=== PATIENT | female | born 1975 | race Two or more races ===

== ENCOUNTER 2019-08-06 12:53 | Emergency (ER) | payer OTHER ==
[~2019-08-06] VITALS: Ht 172.7 cm; Wt 68.0 kg
[~2019-08-06 12:53] MED LIST: ALBUTEROL SULF8.5 GM INH; AZITHROMYCIN250 MG PO; BACTRIM DOUBLE S1 E1 ORAL; FERROUS SULFAT325 MG ORAL; FOLIC ACID1 MG ORAL; KEFLEX500 MG ORAL; MULTIVITAMINS1 EAC2 ORAL; NKM; THIAMINE HCL100 MG ORAL
--- NOTE | 2019-08-06 13:25 | NUR ---
ED Nurse Note: Pt ambulated to ED d/t fever and productive cough since 07/25/19. Per report pt traveled to [place] jul 07- via [place]. Pt is AOx4. Afebrile on triage. Placed on trauma room.
[2019-08-06 13:27] VITALS: BP 141/77
--- NOTE | 2019-08-06 13:45 | NUR ---
ED Nurse Note: Report received from DANIS Gonsalves. pt is in bed resting. no acute distress present.
--- NOTE | 2019-08-06 13:52 | NUR ---
ED Nurse Note: flu swab sent to lab
--- NOTE | 2019-08-06 14:56 | Diagnostic Imaging Report ---
Indication: Cough Technique: One view of the chest Comparison: 09/09/2014 Findings: There are some atelectasis at the right lung base. Lungs and pleural spaces are otherwise clear. The heart size is normal. Impression: Right basilar atelectasis. No acute process otherwise
--- NOTE | 2019-08-06 15:02 | Emergency Room Report ---
History of Present Illness General Chief Complaint: Upper Respiratory Illness Source: Patient Present Illness HPI 43-year-old female with no symptom past medical history other than smoking history status post bleeding times several years here complaining of 2 weeks of continuous cough and shortness of breath after coming back from [place]. Patient reports that on July 02 she went to [place], came back and was asymptomatic. Then on June she started with cough and congestion and low -grade fever however cough and congestion has not yet subsided. Patient also has her mom who went to [place] with her and presents to have similar symptoms. Patient's mom is not here today. Patient denies any chest pain, headache and dizziness. Patient denies coming contact with anyone who has traveled to countries of [place]. Is afebrile and vital signs are within normal limits. [facility] was contacted after patient was placed in isolation with negative pressure, and proper scanning and mask was used for examination of patient. After speaking to Brandy at [facility] it was determined that since patient has normal chest x -ray, as well as negative flu swab, patient can be discharged to go home with treatment for symptoms and self quarantine for 14 days. Patient denies . COVID-19 risk:Travel to [facility]: Yes Has patient experienced ruiz: No Allergies: Coded Allergies: No Known Allergies (Unverified , 05/21/12) Patient History Past Medical History: see triage record Past Surgical History: none Pertinent Family History: none Social History: Reports: smoking - hx of tobacco smoke, Now: No Immunizations: UTD Reviewed Nursing Documentation: PMH: Agreed; PSxH: Agreed Nursing Documentation-PM Past Medical History: No Stated History Hx Cardiac Problems: No Hx Cancer: No Hx Gastrointestinal Problems: No Hx Neurological Problems: No Review of Systems All Other Systems: negative except mentioned in HPI Physical Exam Vital Signs Date Time Temp Pulse Resp B/P (MAP) Pulse Ox O2 Delivery O2 Flow Rate FiO2 08/06/19 12:56 97.9 97 17 141/77 (98) 97 Room Air Sp02 EP Interpretation: reviewed, normal General Appearance: no apparent distress, alert, GCS 15, non-toxic Head: normocephalic, atraumatic Eyes: bilateral eye normal inspection, bilateral eye PERRL ENT: hearing grossly normal, normal pharynx, no angioedema, normal voice Neck: full range of motion, supple, thyroid normal, no meningismus, no bony tend, no carotid bruits, supple/symm/no masses Respiratory: chest non-tender, lungs clear, normal breath sounds, no rhonchi, no respiratory distress, no retraction, no accessory muscle use, no wheezing, speaking full sentences Cardiovascular #1: regular rate, rhythm, no edema, no murmur Gastrointestinal: normal bowel sounds, non tender, soft, non-distended, no guarding, no rebound Rectal: deferred Genitourinary: no CVA tenderness Musculoskeletal: back normal, no calf tenderness Neurologic: alert, motor strength/tone normal, oriented x3, sensory intact, responsive, speech normal Psychiatric: judgement/insight normal, memory normal, mood/affect normal, no suicidal/homicidal ideation Skin: no rash, normal color, warm/dry, normal turgor Lymphatic: no adenopathy Medical Decision Making PA Attestation All my diagnosis and treatment plans were reviewed ad discussed with my supervising physician Dr. Marie Diagnostic Impression: Primary Impression: Pneumonitis ER Course 43-year-old female with no symptom past medical history other than smoking history status post bleeding times several years here complaining of 2 weeks of continuous cough and shortness of breath after coming back from [place]. Patient reports that on July 02- she went to [place], came back and was asymptomatic. Then on June she started with cough and congestion and low -grade fever however cough and congestion has not yet subsided. Patient also has her mom who went to [place] with her and presents to have similar symptoms. Patient's mom is not here today. Patient denies any chest pain, headache and dizziness. Patient denies coming contact with anyone who has traveled to countries of hotspot. Is afebrile and vital signs are within normal limits. [facility] was contacted after patient was placed in isolation with negative pressure, and proper scanning and mask was used for examination of patient. After speaking to Brandy at [facility] it was determined that since patient has normal chest x -ray, as well as negative flu swab, patient can be discharged to go home with treatment for symptoms and self quarantine for 14 days. Patient denies . Ddx considered but are not limited to: Coronavirus, bronchitis, PNA, URI viral, bacterial bronchitis, pneumonitis Vital signs: are WNL, pt. is afebrile H&PE are most consistent with: Pneumonitis ORDERS: Chest x-ray, influenza swab, azithromycin, Phenergan DM, guaifenesin, albuterol inhaler, prednisone ED INTERVENTIONS: Isolation with negative pressure DISCHARGE: At this time pt. is stable for d/c to home. Will provide printed patient care instructions, and any necessary prescriptions. Care plan and follow up instructions have been discussed with the patient prior to discharge. Patient to go home and be self quarantine for 14 days, take medication as directed, due to smoking history patient to be treated with antibiotics, also atelectasis in the right lower lobe is secondary to history of smoking patient is already aware of it. If worsening symptoms return to emergency room. Also educated patient on calling [facility] with any further questions. 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 Advised patient to contact [facility] regarding the person that she lives with as well as having the patient seek medical attention. Chest X-Ray Diagnostic Results Chest X-Ray Diagnostic Results : Chest X-Ray Ordered: Yes # of Views/Limited/Complete: 1 View Indication: Other - Cough EP Interpretation: Yes PA Xray: Interpretation reviewed, by supervising MD, and agrees with findings. Interpretation: no consolidation, no effusion, no pneumothorax Impression: No acute disease Electronically Signed by: William FARNSWORTH Scribe Text Small atelectasis right lower lobe,non acute Last Vital Signs Date Time Temp Pulse Resp B/P (MAP) Pulse Ox O2 Delivery O2 Flow Rate FiO2 08/06/19 13:27 97 17 Room Air 08/06/19 13:27 97.9 141/77 97 Disposition: HOME, SELF-CARE Condition: Stable Scripts Prednisone* (PREDNISONE*) 20 Mg Tablet 40 MG ORAL DAILY for 5 Days, #10 TAB Prov: William Carrillo 08/06/19 Albuterol Sulfate (VENTOLIN HFA) 18 Gm Hfa.aer.ad 2 PUFFS INH EVERY 6 HOURS, #18 GM 0 Refills Prov: William Carrillo 08/06/19 Guaifenesin* (GUAIFENESIN*) 100 Mg/5 Ml Liquid 15 ML ORAL Q6H, #120 ML 0 Refills Prov: William Carrillo 08/06/19 D-Methorphan Hb/Prometh Hcl* (PROMETHAZINE-DM SYRUP*) 118 Ml Syrup 5 ML ORAL BEDTIME PRN for For Cough, #120 ML 0 Refills Prov: William Carrillo 08/06/19 Azithromycin* (ZITHROMAX*) 250 Mg Tablet 250 MG ORAL DAILY, #6 TAB 0 Refills Take two tables once daily for 1 day, then one tablet once daily for 4 days. Prov: William Carrillo 08/06/19 Referrals: NON PHYSICIAN (PCP) Patient Instructions: Pneumonitis Additional Instructions: Take medication as directed, follow-up primary care provider, increase oral hydration, you need to be self quarantine for 14 days per recommendation of CDC , contact CDC yourself if worsening symptoms. Return to the emergency room with worsening symptoms. William Carrillo Aug 06, 2019 15:02
[2019-08-06] MEDS ORDERED: ZITHROMAX250 MG ORAL (15:04)
[2019-08-06] MEDS ORDERED: GUAIFENESI100 MG/5 M ORAL (15:04)
[2019-08-06] MEDS ORDERED: PREDNISONE20 MG ORAL (15:04)
[2019-08-06] MEDS ORDERED: PROMETHAZINE-D118 ML ORAL (15:04)
[2019-08-06] MEDS ORDERED: VENTOLIN HFA18 GM INH (15:04)
[2019-08-06 15:05] VITALS: BP 132/78
[2019-08-06 15:10] VITALS: BP 128/80
--- NOTE | 2019-08-06 15:10 | NUR ---
ER DISCHARGE NOTE: Patient is cleared to be discharged per ERMD, pt is aox4, on room air, with stable vital signs. pt was given dc and prescription instructions, pt was able to verbalize understanding, pt id band removed without complications. pt is able to ambulate with steady gait. pt took all belongings.
== END 2019-08-06 15:10 | disposition home or self-care (01) ==
LOC: EMR 13:30
DX: J18.9 Pneumonia, unspecified organism (principal); Z87.891 Personal history of nicotine dependence
CPT/HCPCS: 71045; 86710; Z7502; 99283

== ENCOUNTER 2020-03-30 13:59 | Emergency (ER) | payer OTHER ==
[~2020-03-30] VITALS: Ht 172.7 cm; Wt 63.0 kg
[~2020-03-30 13:59] MED LIST changes: +GUAIFENESI100 MG/5 M ORAL; +PREDNISONE20 MG ORAL; +PROMETHAZINE-D118 ML ORAL; +VENTOLIN HFA18 GM INH; +ZITHROMAX250 MG ORAL
[2020-03-30 14:15] VITALS: BP 123/69
[2020-03-30] MEDS ORDERED: Methocarbamol 500mg tab ORAL ONE (14:45)
[2020-03-30] MEDS ORDERED: Ketorolac 30mg Inj IM ONE (14:45)
--- NOTE | 2020-03-30 15:22 | Emergency Room Report ---
History of Present Illness General Chief Complaint: Multiple Trauma/Fall Source: Patient Present Illness HPI 44-year-old female with no symptom past medical history here status post fall. Patient reports that she went to her friend's house yesterday and she slipped on dish soap. Patient landed on her right wrist and hand and rolled her right ankle. Denies any head injury loss of consciousness. Also complains of lower back pain, pain on tailbone, and neck pain. Patient has full range of motion of all extremities. No bony tenderness noted. Is neurovascularly intact. Denies any saddle paresthesia, urinary bowel incontinence. Denies tingling or numbness. Patient has not taken medication for symptom relief. No ecchymosis noted. Upper and lower extremities have full strength. Denies . Allergies: Coded Allergies: No Known Allergies (Unverified , 05/21/12) COVID-19 Screening COVID-19 risk:Contact w/high r: No Has patient experienced ruiz: No COVID-19 Testing performed [employer]: Yes COVID-19 Screening: Negative COVID-19 COVID-19 Testing Source: [facility] Patient History Past Medical History: unable to obtain Past Surgical History: none Pertinent Family History: none Last Menstrual Period: last month Now: No Immunizations: UTD Reviewed Nursing Documentation: PMH: Agreed; PSxH: Agreed Nursing Documentation-PMH Past Medical History: No Stated History Hx Cardiac Problems: No Hx Cancer: No Hx Gastrointestinal Problems: No Hx Neurological Problems: No Review of Systems All Other Systems: negative except mentioned in HPI Physical Exam Vital Signs Date Time Temp Pulse Resp B/P (MAP) Pulse Ox O2 Delivery O2 Flow Rate FiO2 03/30/20 14:07 98.8 90 18 114/67 (83) 100 Room Air Sp02 EP Interpretation: reviewed, normal General Appearance: normal inspection, alert, no apparent distress, GCS 15 Head: normocephalic, atraumatic Eyes: normal eye exam, PERRL, EOMI, lids + conjunctiva normal, no hyphema, no racoon eyes ENT: normal ENT inspection, TMs + canals normal, oropharynx normal, no carcamo signs Neck: trach midline, no bony tend, full range of motion without pain Respiratory: effort normal, no retractions, clear to auscultation, chest symmetrical, palpation of chest normal, speaking in full sentences Cardiovascular: regular rate, rhythm, no JVD Cardiovascular #2: 2+ radial (R), 2+ radial (L), 2+ dorsalis pedis (R), 2+ dorsalis pedis (L) Gastrointestinal: normal inspection, non-tender, non-distended, no rebound/guarding, normal bowel sounds Musculoskeletal: gait & station normal, normal ROM, non-tender, back normal Skin: no rash, no lacerations, normal palpation Lymphatic: normal inspection Neurologic: oriented x3, sensory intact, motor strength/tone normal, normal speech Psychiatric: normal inspection, memory normal, mood normal, no suicidal/homicidal ideation Procedures Splinting Splinting : Consent: Verbal Location: Right wrist Pre-Made Type: velcro Splint: wrist Pre-Proc Neuro Vasc Exam: normal Post-Proc Neuro Vasc Exam: normal Patient Tolerated: Well Complications: None Medical Decision Making PA Attestation All diagnoses and treatment plans were reviewed and discussed with my supervising physician Dr. Zhang Diagnostic Impression: Primary Impression: Cervical strain Additional Impressions: Lumbar contusion Coccyx contusion Wrist sprain Ankle sprain ER Course 44-year-old female with no symptom past medical history here status post fall. Patient reports that she went to her friend's house yesterday and she slipped on dish soap. Patient landed on her right wrist and hand and rolled her right ankle. Denies any head injury loss of consciousness. Also complains of lower back pain, pain on tailbone, and neck pain. Patient has full range of motion of all extremities. No bony tenderness noted. Is neurovascularly intact. Denies any saddle paresthesia, urinary bowel incontinence. Denies tingling or numbness. Patient has not taken medication for symptom relief. No ecchymosis noted. Upper and lower extremities have full strength. Denies . Ddx considered but are not limited to: Lumbar spine sprain, strain, fracture, contusion, neuropathy, wrist sprain versus bacterial versus strain, contusion versus sprain versus fracture, ankle sprain versus fracture versus strain Vital signs: are WNL, pt. is afebrile H&PE are most consistent with: Cervical strain, lumbar and coccyx contusion, wrist sprain, sprain ORDERS: Lumbar spine x-ray, coccyx x-ray, hand x-ray, C-spine x-ray, wrist x- ray, ankle x-ray, Robaxin, ibuprofen, lidocaine patch ER intervention: Toradol IM, Robaxin DISCHARGE: At this time pt. is stable for d/c to home. Will provide printed patient care instructions, and any necessary prescriptions. Care plan and follow up instructions have been discussed with the patient prior to discharge. Take medication as directed, follow primary care provider orthopedist, worsening symptoms return to emergency room Other X-Ray Diagnostic Results Other X-Ray Diagnostic Results #1: X-Ray ordered: Right wrist # of Views/Limited Vs Complete: 3 View Indication: Pain EP Interpretation: Yes Interpretation: no dislocation, no soft tissue swelling, no fractures Impression: No acute disease Electronically Signed by: William Bains PA-C Other X-Ray Diagnostic Results #2: X-Ray ordered: Right hand # of Views/Limited Vs Complete: 3 View Indication: Pain EP Interpretation: Yes Interpretation: no dislocation, no soft tissue swelling, no fractures Impression: No acute disease Electronically Signed by: William Bains PA-C Other X-Ray Diagnostic Results #3: X-Ray ordered: Right ankle # of Views/Limited Vs Complete: 3 View Indication: Pain EP Interpretation: Yes Interpretation: no dislocation, no soft tissue swelling, no fractures Impression: No acute disease Electronically Signed by: William Bains PA-C Other X-Ray Diagnostic Results #4: X-Ray ordered: L-spine # of Views/Limited Vs Complete: 3 View Indication: Pain EP Interpretation: Yes Interpretation: no dislocation, no soft tissue swelling, no fractures Impression: No acute disease Electronically Signed by: William Bains PA-C Other X-Ray Diagnostic Results #5: X-Ray ordered: Coccyx # of Views/Limited Vs Complete: 3 View Indication: Pain EP Interpretation: Yes Interpretation: no dislocation, no soft tissue swelling, no fractures Impression: No acute disease Electronically Signed by: William Bains PA-C Other X-Ray Diagnostic Results #6: X-Ray ordered: C-spine # of Views/Limited Vs Complete: 3 View Indication: Pain EP Interpretation: Yes Interpretation: no dislocation, no soft tissue swelling, no fractures Impression: No acute disease Electronically Signed by: William Bains PA-C Last Vital Signs Date Time Temp Pulse Resp B/P (MAP) Pulse Ox O2 Delivery O2 Flow Rate FiO2 11/4/20 14:07 98.8 90 18 114/67 (83) 100 Room Air Disposition: HOME, SELF-CARE Condition: Stable Scripts Lidocaine Patch* (Lidoderm Patch*) 1 Each Adh..patch 1 PATCH TOPIC DAILY, #30 PATCH Patch(es) may remain in place for up to 12 hours in any 24-hour period. Prov: William Carrillo 03/30/20 Methocarbamol* (ROBAXIN-500*) 500 Mg Tablet 500 MG ORAL TID PRN for For Pain, #15 TAB 0 Refills Prov: William Carrillo 03/30/20 Ibuprofen (Ibu) 800 Mg Tablet 800 MG PO TID, #30 TAB Prov: William Carrillo 03/30/20 Referrals: [facility],REFERRING (PCP) Patient Instructions: Ankle Sprain, [id number], Cervical Strain and Sprain With Rehab-SportsMed, Contusion, [id number], Wrist Sprain Additional Instructions: Take medication as directed, follow-up with your primary care provider or orthopedist, if worsening symptoms return to the emergency room William Carrillo Mar 30, 2020 15:22
[2020-03-30] MEDS ORDERED: IBU800 MG PO (15:58)
[2020-03-30] MEDS ORDERED: ROBAXIN-500MG ORAL (15:58)
[2020-03-30] MEDS ORDERED: LIDODERM700 M1 TOPIC (15:58)
--- NOTE | 2020-03-30 16:17 | Diagnostic Imaging Report ---
Indications: Pain, status post fall Technique: 3 views of the thoracic spine Comparison: None Findings: Bony alignment is normal. Vertebral body heights are preserved. Disc spaces are preserved. The pedicles are intact. Impression: Negative
--- NOTE | 2020-03-30 16:19 | Diagnostic Imaging Report ---
Indication: Pain, trauma, status post fall Technique: 2 views of the sacrum and coccyx Comparison: none Findings: No acute fractures. No dislocations. The sacral arches are preserved. Sacroiliac joint spaces are preserved. The hip joint spaces are preserved. Impression: Negative
--- NOTE | 2020-03-30 16:20 | Diagnostic Imaging Report ---
Indication: Pain, trauma Technique: 3 views of the lumbar spine Comparison: None Findings: Bony alignment is normal. Vertebral body heights are preserved. The disc spaces are preserved. The pedicles are intact. Sacral arches are preserved. Sacroiliac joint spaces are preserved Impression: Negative
--- NOTE | 2020-03-30 16:21 | Diagnostic Imaging Report ---
Indication: Pain, status post fall Technique: 3 views of the cervical spine Comparison: none Findings: Bony alignment is normal. Vertebral body heights are preserved. Disc spaces are preserved. No prevertebral soft tissue swelling. No acute fractures. Impression: Negative
--- NOTE | 2020-03-30 16:22 | Diagnostic Imaging Report ---
Clinical Indication:Trauma, pain Technique: 3 views of the right wrist Comparison: None Findings: There is degenerative narrowing of the lateral intercarpal joint and first and second carpometacarpal joints. There is also degenerative narrowing of the third fourth and fifth distal interphalangeal joints. No acute fractures. No dislocations. No radiopaque foreign body. Impression: Degenerative changes as described No acute bony trauma
[2020-03-30 16:25] VITALS: BP 133/74
--- NOTE | 2020-03-30 20:22 | Diagnostic Imaging Report ---
Indication: Trauma, pain, status post fall Technique: 3 views of the right ankle Comparison: none Findings: No acute fractures. No dislocations. The joint spaces are preserved Impression: Negative
--- NOTE | 2020-03-30 20:26 | Diagnostic Imaging Report ---
Indication: Pain, trauma Technique: 3 views right hand Comparison: none Findings: No acute fractures. No dislocations. There is degenerative narrowing of the proximal and distal interphalangeal joints. There is degenerative narrowing of the lateral intercarpal joint. Impression: No acute bony trauma Degenerative changes, as described
== END 2020-03-30 16:25 | disposition home or self-care (01) ==
LOC: EMR 14:50
DX: S16.1XXA Strain of muscle, fascia and tendon at neck level, initial encounter (principal); S30.0XXA Contusion of lower back and pelvis, initial encounter; S63.501A Unspecified sprain of right wrist, initial encounter; S93.401A Sprain of unspecified ligament of right ankle, initial encounter; W01.0XXA Fall on same level from slipping, tripping and stumbling without subsequent striking against object, initial encounter; Y92.009 Unspecified place in unspecified non-institutional (private) residence as the place of occurrence of the external cause
CPT/HCPCS: 72020; 72040; 72070; 72220; 73110; 73130; 73610; 96372; J1885; Z7502; 99284